=== PATIENT | male | born 1985 | race Asian ===

== ENCOUNTER 2016-07-25 11:31 | Emergency (ER) | payer BC ==
[~2016-07-25] VITALS: Ht 160 cm; Wt 61.2 kg
[2016-07-25 11:45] VITALS: BP 131/88
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
[2016-07-25] MEDS ORDERED: CYCL10TA2 PO (12:49)
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
== END 2016-07-25 12:52 | disposition home or self-care (01) ==
LOC: ER 11:31
DX: S16.1XXA Strain of muscle, fascia and tendon at neck level, initial encounter (principal); V53.6XXA Passenger in pick-up truck or van injured in collision with car, pick-up truck or van in traffic accident, initial encounter; Y92.413 State road as the place of occurrence of the external cause; Y93.89 Activity, other specified; Y99.8 Other external cause status
CPT/HCPCS: 70450; 72125; 99284-25